=== PATIENT | male | born 1950 | race Caucasian/White ===

== ENCOUNTER 2023-10-17 23:34 | Emergency (ER) | payer MEDICARE, SELFPAY ==
[2023-10-17 23:34] VITALS: BP 104/81; PULSE 62; RESP 18; TEMP 36.6; O2SAT 100; BMI 22.9
[2023-10-17 23:50] LABS: Basophils % 0.3 % (0.1-2.0); Eosinophils # 0.3 K/mm3 (0.0-0.4); Eosinophils % 2.6 % (0.1-12.0); Hematocrit 34.4 % (42.0-52.0); Hemoglobin 10.6 g/dL (14.1-18.0); Lymphocytes # 1.7 K/mm3 (0.7-4.5); Lymphocytes % 16.1 % (10-50); Mean Corpuscular HGB Conc 30.9 g/dL (31.8-35.4); Mean Corpuscular Hemoglobin 26.7 pg (27.0-31.2); Mean Corpuscular Volume 86.4 fl (80-94); Mean Platelet Volume 7.8 fl (7.4-10.4); Monocytes # 0.6 K/mm3 (0.1-1.0); Monocytes % 6.2 % (1.7-9.3); Neutrophils # 7.7 K/mm3 (1.8-7.8); Neutrophils % 74.7 % (37.0-80.0); Platelet Count 281 K/mm3 (142-424); Red Blood Count 3.99 M/mm3 (4.60-6.20); Red Cell Distribution Width 15.2 % (11.5-17.5); White Blood Count 10.3 K/mm3 (4.8-10.8)
[2023-10-17] MEDS: FENTANYL 100MCG/2ML VIAL 50 MCG IV (23:51)
--- NOTE | 2023-10-17 23:51 | HMH.EDGENADL ---
Discharge Plan Disposition Patient Disposition: Xfer SNF Condition: Good Prescriptions Prescriptions: New levofloxacin 750 mg tablet 750 mg PO DAILY 7 Days Qty: 7 0RF Referrals Follow up/Referrals: Edwin Salazar MD [Staff Physician] - See instructions (Bueno in place for urinary obstruction after ripping previous Bueno out by himself, patient has UTI, needs follow-up) Oliver Pal APRN [Primary Care Provider] - See instructions Activity Restrictions/Add. Instructions Additional Instructions/Restrictions: Brendan was evaluated in the ER and is appropriate for discharge at this time. Bueno catheter needs to remain in place until he follows up with urology. He has been referred to Dr. Salazar with urology in case he is unable to get into his own urologist, however please call the urologist with whom he currently follows and have him seen this week for re-evaluation. Stop giving cefdinir, start giving the newly prescribed levofloxacin. Continue the previously prescribed salt pills. Follow-up with primary care in 3 days. Return to the ER with new, worsening, or otherwise concerning symptoms. Clinical Impressions Clinical Impression: Urinary tract infection, Acute urinary obstruction Instructions Patient Instructions: DI for Urinary Tract Infection (UTI) Print Language Print Language: Japanese Discharge ED Provider: Jose Luis Frias General Adult HPI General Chief complaint: Urogenital-Male Stated complaint: bueno trauma from self-extricating bueno Time Seen by Provider: 10/17/23 23:38 History of Present Illness HPI narrative: 73-year-old male presents to the ER from [place] with reports of penile trauma from yanking out his Bueno today. This was the report provided to EMS by the facility, however the patient is reporting he had a Bueno catheter removed by the paramedics earlier today and since that time has been unable to urinate. Patient had left [facility] recently which she reports was due to infection. Patient is a diabetic. Patient is oriented on arrival but seems intermittently slightly confused. When I made a statement about having part of his leg recently amputated, he asked who?! and when I said you , he looked at his leg and said oh yeah despite us talking about the amputation shortly before this. Patient states he does not know why he had the Bueno catheter. Reportedly he has not had any new traumas or falls. He denies fevers, chills, chest pain, difficulty breathing, cough, congestion, vomiting, diarrhea, or constipation. Patient states he feels like he could urinate but is not sure he will be able to. He is complaining of mild penile pain at this time. Related Data Previous Rx's ?Medication ?Instructions ?Recorded levofloxacin 750 mg tablet 750 mg PO DAILY 7 days #7 tabs 10/18/23 Allergies Allergy/AdvReac Type Severity Reaction Status Date / Time No Known Allergies Allergy Verified 10/18/23 00:35 [facility] Disclaimer: The information contained in this section may have been updated after the patient was seen, as this information can be updated by other users. Social History Smoking Status: Never smoker alcohol intake: never current occupational status: unemployed Travel in the last 8 weeks: None ROS Obtained: Yes All systems reviewed & no additional complaints except as documented Positive ROS per HPI Physical Exam General General appearance: alert and in no apparent distress Head Head exam: atraumatic and normocephalic Eye Eye exam: Present PERRL and EOMI ENT ENT exam: Present mucous membranes moist Neck Neck exam: Present normal inspection and full ROM Chest Chest inspection: Present symmetric chest wall rise Respiratory Respiratory exam: Present normal lung sounds bilaterally; Absent respiratory distress, wheezes or stridor Cardiovascular Cardiovascular exam: Present regular rate and normal rhythm Abdominal Exam Abdominal exam: Present soft and tenderness (Mild lower abdominal tenderness, I am able to feel a full bladder in his lower abdomen); Absent distention, guarding or rebound exam: Present urethral discharge (Blood at the urethral meatus, there also appears to be tissue from the urethra, when I try to clear this, it is clearly attached.), normal testicular lie and other; Absent testicular tenderness, scrotal swelling or circumcised Expanded Exam exam: Present penile swelling (Mild swelling at the distal end of the penis, I am able to retract the foreskin); Absent phimosis, paraphimosis, erythema, perineal induration or priapism Extremities Exam Extremities exam: Present full ROM Neurological Exam Neurological exam: Present alert, oriented X3 and other (GCS 15, follows commands appropriately, is oriented but seems transiently slightly confused/loses his train of thought); Absent motor sensory deficit Psychiatric Psychiatric exam: Present normal affect and normal mood Skin Skin exam: Present warm and dry Medical Decision Making Saad Inquiry Pt receiving controlled substance: No Vital Signs: 10/17/23 23:34 10/18/23 01:30 10/18/23 02:00 Temperature 97.9 F Temperature Source Oral Pulse Rate [Right Brachial] 62 Respiratory Rate 18 Blood Pressure 103/60 L 122/65 Blood Pressure [Right Arm] 104/81 L Blood Pressure Mean 78 84 Blood Pressure Mean [Right Arm] 88 02 Sat by Pulse Oximetry 100 Oxygen Delivery Method Room Air Lab Data Lab Results 10/17/23 23:40: WBC 10.3, RBC 3.99 L, Hgb 10.6 L, Hct 34.4 L, MCV 86.4, MCH 26.7 L, MCHC 30.9 L, RDW 15.2, Plt Count 281, MPV 7.8, Neut % (Auto) 74.7, Lymph % (Auto) 16.1, [place] % (Auto) 6.2, Eos % (Auto) 2.6, Baso % (Auto) 0.3, Neut # (Auto) 7.7, Lymph # (Auto) 1.7, [place] # (Auto) 0.6, Eos # (Auto) 0.3, Baso # (Auto) 0.0, PT 12.1, INR 1.09, Sodium 125 L, Potassium 4.5, Chloride 90 L, Carbon Dioxide 29, Anion Gap 10.5, BUN 11, Creatinine 0.70, Estimated GFR 111, Est GFR ( Amer) 134, Glucose 93, Lactate 1.9, Calcium 8.7, Total Bilirubin 0.8, AST 47, ALT 35, Alkaline Phosphatase 119, Total Protein 7.2, Albumin 3.7, Globulin 3.5 H, Albumin/Globulin Ratio 1.1 10/18/23 00:55: Urine Color Yellow, Urine Appearance Slightly cloudy, Urine pH 6.5, Ur Specific [place] <= 1.005, Urine Protein 1+ A, Urine Glucose (UA) Negative, Urine Ketones Negative, Urine Blood 3+ A, Urine Nitrate Positive, Urine Bilirubin Negative, Urine Urobilinogen 0.2, Ur Leukocyte Esterase 2+ A, Urine RBC 20-50, Urine WBC 20-50, Ur Squamous Epith Cells Occasional, Urine Bacteria 2+ 10/17/23 23:40 10/17/23 23:40 Orders (Tests/Meds): ED MEDICATIONS Generic Name Dose Route Start Last Admin Trade Name Freq PRN Reason Stop Dose Admin Levofloxacin/Dextrose 750 mg in 150 mls @ 100 mls/hr 10/18/23 01:19 10/18/23 01:20 Levofloxacin 750mg/150ml Premix IV 10/18/23 02:48 100 mls/hr ONCE ONE Administration Discontinued Medications Generic Name Dose Route Start Last Admin Trade Name Rosmery PRN Reason Stop Dose Admin Fentanyl Citrate 50 mcg 10/17/23 23:39 10/17/23 23:51 Fentanyl 100mcg/2ml Vial IV 10/17/23 23:40 50 mcg ONCE ONE Administration Ceftriaxone Sodium 1 gm/ 50 mls @ 100 mls/hr 10/18/23 01:07 10/18/23 01:20 Sodium Chloride IV 10/18/23 01:36 Not Given ONCE ONE Sodium Chloride 1,000 mls @ 999 mls/hr 10/18/23 01:25 10/18/23 01:27 Sod Chlor 0.9% 1000ml Bag IV 10/18/23 02:25 999 mls/hr .Q1H1M ONE Administration Lidocaine HCl 10 ml 10/18/23 00:34 10/18/23 00:36 Lidocaine 2% Urojet 10ml TP 10/18/23 00:35 10 ml ONCE ONE Administration Oxycodone HCl 5 mg 10/18/23 01:24 10/18/23 01:26 Oxycodone 5mg Immediate Release Tablet PO 10/18/23 01:25 5 mg ONCE ONE Administration ORDERS Category Date Time Status CBC w/Auto Diff [Complete Blood Count Auto Diff] Stat Lab 10/17/23 23:40 Completed CMP [Comprehensive Metabolic Panel] Stat Lab 10/17/23 23:40 Completed Lactic Acid Stat Lab 10/17/23 23:40 Completed PT INR [Prothrombin Time INR] Stat Lab 10/17/23 23:40 Completed Urinalysis and Microscopic Stat Lab 10/18/23 00:55 Completed Urine Culture Stat Micro 10/18/23 00:55 Received Medical Decision Narrative: In summary, this 73-year-old male presents to the emergency department today with difficulty urinating, penile pain, blood from the meatus, concerns from the facility that he had pulled out his own catheter. On initial evaluation patient is hemodynamically stable, afebrile, GCS 15, alert, oriented, mild abdominal tenderness to palpation with obvious full bladder on exam, penile exam concerning for mild distal swelling, no phimosis or paraphimosis, blood and tissue at the urethral meatus, normal penile lie, normal testicular lie, no scrotal or testicular swelling or pain. Differential diagnosis includes but is not limited to urethral trauma, urinary retention, kidney dysfunction, electrolyte abnormality, urinary tract infection. Based on these concerns, I ordered bladder scan, serum labs, urine sample. Patient has been asked to provide a urine sample and knows that if he is unable to that we will attempt to replace the Bueno catheter that was removed earlier. Patient received small dose of fentanyl for treatment due to pain on exam. Three-way Bueno catheter was placed so that if patient has additional blood clots, bladder can be irrigated. Labs personally reviewed demonstrate no leukocytosis, mild anemia, normal platelets, hyponatremia, hypochloremia, UA positive for findings of UTI. Urinalysis had blood which is obvious on visualization of the urine and consistent with the report of Bueno having been yanked out by the patient, urethral trauma,, no clots were appreciated in the Bueno bag. Catheter draining freely at this time. Spoke with patient's bedside nurse at [place] who states patient has been on cefdinir for the last few days, family supports this stating he was started on cefdinir to prevent infection by his urologist 4 days ago. Unfortunately in that time patient has developed obvious nitrate positive infection despite being on cefdinir, therefore patient is going to receive IV Levaquin and urine is being sent for culture. Outpatient antibiotics will be changed to Levaquin. Nurse also states that patient takes sodium pills 3 times daily for hyponatremia, his low sodium today is not a new problem. Now that patient's bladder obstruction has been relieved and he is successfully draining urine, he is receiving 1 L of normal saline which will gently correct his electrolyte abnormalities as well as help maintain good kidney function with rehydration. Bueno had approximately 550 mL out initially. Patient was monitored for postobstructive diuresis. He was placed in ED observation for this purpose at 0100. After 2 hours of monitoring, patient had an additional 300mL output, total of 850 mL out. Less than 200 mL/h after catheterization. Reassuring against postobstructive diuresis. Patient is appropriate for discharge at this time. I personally called Wen, patient's bedside nurse and informed her of patients prescription changes. He is to stop the cefdinir, start taking the newly prescribed levofloxacin, continue salt pills and all other home medications. I also updated her on referral to urology and instructions for outpatient follow-up as well as Bueno maintenance. Patient, family, and his nurse at [place] were given instructions on symptomatic monitoring and management, follow up instructions, and return precautions for the emergency department. They all indicated understanding and patient was discharged in stable condition. Total time in ED observation: 1 hour 45 minutes Critical Care Critical Care Time Critical Care Time: No
--- NOTE | 2023-10-17 23:52 | PC.NURSE ---
Bladder scan showed 683 mL.
[2023-10-17 23:55] LABS: Albumin Level 3.7 g/dl (3.5-5.0); Chloride 90 mmol/L (98-107); Potassium 4.5 mmoL/L (3.5-5.1); Sodium 125 mmol/L (136-145)
[2023-10-17 23:57] LABS: Lactic Acid 1.9 mmol/L (0.7-2.1)
[2023-10-17 23:58] LABS: Alanine Aminotransferase 35 U/L (12-78); Albumin/Globulin Ratio 1.1 (1.1-1.8); Alkaline Phosphatase 119 U/L (38-126); Anion Gap 10.5 mEq/L (5-15); Aspartate Amino Transferase 47 U/L (17-59); Bilirubin,Total 0.8 mg/dl (0.2-1.3); Blood Urea Nitrogen 11 mg/dl (9-20); Calcium 8.7 mg/dl (8.4-10.2); Carbon Dioxide 29 mmol/L (22.0-30.0); Estimated Glomerular Filt Rate 111 ml/min (>60); GFR (African American) 134 ML/MIN (>60); Globulin 3.5 g/dL (1.3-3.2); Glucose 93 mg/dl (74-100); Total Protein,Serum 7.2 g/dl (6.3-8.2)
[2023-10-17 23:59] LABS: INR 1.09 (0.9-1.1); Prothrombin Time 12.1 seconds (10.1-12.5)
[2023-10-18] MEDS: LIDOCAINE 2% UROJET 10ML 10 ML TP (00:36)
[2023-10-18 01:01] LABS: Bilirubin,Urine Negative (Negative); Blood, Urine 3+ (Negative); Color,Urine YELLOW (Yellow); Glucose,Urine (UA) Negative (Negative); Ketones,Urine Negative (Negative); Leukocyte Esterase,Urine 2+ (Negative); Microscopic, Urine URINE MICROSCOPIC (MICROSCOPIC); Nitrate,Urine POSITIVE (Negative); PH,Urine 6.5 (5.0-8.5); Protein,Urine 1+ (Negative); Specific Gravity, Urine <= 1.005 (1.005-1.030); Urobilinogen,Urine 0.2 EU/dl (0.2)
[2023-10-18 01:04] LABS: Appearance,Urine Slightly Cloudy (Clear)
[2023-10-18] MEDS: LEVOFLOXACIN/D5W 750 MG/150 ML 750 MG/150 ML PIGGYBACK 100 MG IV (01:20)
[2023-10-18] MEDS: OXYCODONE 5MG IMMEDIATE RELEASE TABLET 5 MG PO (01:26)
[2023-10-18] MEDS: 0.9 % SODIUM CHLORIDE 1000ML 1,000 ML 999 ML IV (01:27)
[2023-10-18 01:30] VITALS: BP 103/60
[2023-10-18 01:31] LABS: WBC,Urine 20-50 #/hpf (0-3)
[2023-10-18 01:32] LABS: Bacteria,Urine 2+ /lpf; RBC,Urine 20-50 #/hpf (0-3); Squamous Epithelial Cell,Urine Occasional #/hpf (0-5)
[2023-10-18 02:00] VITALS: BP 122/65
[2023-10-18 02:31] VITALS: BP 137/59
[2023-10-18 03:01] VITALS: BP 96/57
[2023-10-18 03:30] VITALS: BP 120/68
[2023-10-18 06:32] VITALS: BP 163/89; PULSE 63; RESP 18; TEMP 36.6; O2SAT 100
--- NOTE | 2023-10-19 11:10 | PC.NURSE ---
discussed urine culture with , pt dc with tien, ntd
== END 2023-10-18 06:34 ==
PROVIDERS: Emergency Provider Emergency Medicine; PCP Nurse Practitioner Family
DX: N39.0 Urinary tract infection, site not specified (principal); T83.098A Other mechanical complication of other urinary catheter, initial encounter; R33.9 Retention of urine, unspecified; B96.5 Pseudomonas (aeruginosa) (mallei) (pseudomallei) as the cause of diseases classified elsewhere
CPT/HCPCS: 51702; 80053; 81001; 83605; 85025; 85610; 87086; 87088; 87186; 96365; 96374; 99285; J1956; J3010; J7030